=== PATIENT | male | born 1970 | race Caucasian/White ===

== ENCOUNTER → 2021-11-29 | Outpatient (CLI) | payer BC ==
--- NOTE | 2021-11-30 09:15 | RAD ---
US TESTICULAR History: Reason: TESTICLE PAIN / Spl. Instructions: / History: Comparison: None. Technique: Multiple grayscale, color flow Doppler and Doppler spectral analysis images of the scrotum are obtained. Findings: Right testicle measures 5.4 x 2.1 x 2.4 cm. Right testicle demonstrates normal parenchymal echogenic ity. Right epididymis is unremarkable. Normal Doppler flow to the right testicle. Left testicle measures 5.2 x 3.2 x 2.3 cm. Left testicle demonstrates normal parenchymal echogenici ty. Left epididymis is unremarkable. Normal Doppler flow to the left testicle. Small bilateral hydroceles. No scrotal hyperemia or swelling. IMPRESSION: 1. Small bilateral hydroceles. Electronically signed by: Martin Venegas DO (11/30/2021 9:12 AM) [id number]
== END ==
LOC: US 14:17
PROVIDERS: ATTEND Family Medicine
DX: N43.3 Hydrocele, unspecified (principal); N50.819 Testicular pain, unspecified
CPT/HCPCS: 76870